=== PATIENT | female | born 1985 | race African-American/Black ===

== ENCOUNTER 2022-03-30 10:10 | Emergency (ER) | payer BC ==
[~2022-03-30] VITALS: Ht 177.8 cm; Wt 91.0 kg
[2022-03-30] MEDS ORDERED: KETOROLAC 60MG/2ML VIAL IM ONE (10:15)
[2022-03-30 11:20] VITALS: BP 148/86
[2022-03-30] MEDS ORDERED: METH-773 MT (12:06)
[2022-03-30] MEDS ORDERED: IBUP-2030 MT (12:06)
== END 2022-03-30 12:27 | disposition home or self-care (01) ==
LOC: ER 11:08
DX: M54.50 Low back pain, unspecified (principal); J45.909 Unspecified asthma, uncomplicated; Z88.0 Allergy status to penicillin; V49.9XXA Car occupant (driver) (passenger) injured in unspecified traffic accident, initial encounter; Y93.89 Activity, other specified; Y92.89 Other specified places as the place of occurrence of the external cause; Y99.8 Other external cause status
CPT/HCPCS: 72100; 72125; 96372; 99284; J1885

== ENCOUNTER 2023-08-16 23:06 | Emergency (ER) | payer BC, OTHER ==
[~2023-08-16] VITALS: Ht 170.2 cm; Wt 87.0 kg
[~2023-08-16 23:06] MED LIST: ACET-2708 MT; IBUP-2030 MT; METH-773 MT
[2023-08-16 23:16] VITALS: O2SAT 98
[2023-08-16 23:52] LABS: BASOPHILS % 0.9 % (0.0-2.0); DIFFERENTIAL COMMENT 0; EOSINOPHILS % 6.1 % (0.0-5.0); HEMATOCRIT. 34.9 % (36.0-48.0); HEMOGLOBIN. 11.2 g/dL (12.0-16.0); LYMPHOCYTES % 28.6 % (20.0-50.0); MEAN CORPUSCULAR HEMOGLOBIN 24.8 pg (28.0-32.0); MEAN CORPUSCULAR VOLUME 77.6 fL (81.0-99.0); MEAN PLATELET VOLUME 7.3 fl (7.4-10.4); MONOCYTES % 8.3 % (2.0-8.0); NEUTROPHILS % 56.1 % (40.0-76.0); PLATELET 484 x1000/uL (130-400); RED CELL DISTRIBUTION WIDTH 16.9 % (11.6-14.6); WHITE BLOOD COUNT 8.8 x1000/uL (4.5-11.0)
[2023-08-17 00:07] LABS: ALANINE AMINOTRANSFERASE 64 IU/L (10-49); ALBUMIN 4.6 g/dL (3.2-4.8); ASPARTATE AMINOTRANSFERASE 44 IU/L (<34); BILIRUBIN TOTAL 0.4 mg/dL (0.1-1.0); CALCIUM 9.6 mg/dL (8.7-10.4); CARBON DIOXIDE 24 mEq/L (21-32); CHLORIDE 104 mEq/L (98-107); CREATININE 0.8 mg/dL (0.6-1.0); GLUCOSE 101 mg/dL (70-105); POTASSIUM 3.6 mEq/L (3.5-5.1); PROTEIN TOTAL 7.7 g/dL (6.0-8.3); SODIUM 137 mEq/L (136-145); TROPONIN I HIGH SENSITIVITY 4 ng/L (3.0-34); UREA NITROGEN BLOOD 12 mg/dL (9-23)
[2023-08-17 00:13] LABS: HCG SCREEN NEGATIVE
[2023-08-17 07:08] VITALS: BP 114/66; PULSE 72; RESP 14
[2023-08-17 09:17] VITALS: TEMP 98.9
[2023-08-17] MEDS: ACETAMINOPHEN 325MG TABLET PO ONE (09:17)
== END 2023-08-17 11:00 | disposition home or self-care (01) ==
LOC: ER 23:06
DX: R07.89 Other chest pain (principal); J45.909 Unspecified asthma, uncomplicated; Z98.890 Other specified postprocedural states
CPT/HCPCS: 36415; 71045; 80053; 84484; 84703; 85025; 93005; 99285

== ENCOUNTER 2023-09-30 14:05 | Inpatient (IN) | payer BC, OTHER ==
[~2023-09-30] VITALS: Ht 170.2 cm; Wt 82.1 kg
[2023-09-30 15:21] LABS: DIFFERENTIAL COMMENT 0; EOSINOPHILS % 3.2 % (0.0-5.0); HEMATOCRIT. 29.6 % (36.0-48.0); HEMOGLOBIN. 9.7 g/dL (12.0-16.0); LYMPHOCYTES % 32.2 % (20.0-50.0); MEAN CORPUSCULAR HEMOGLOBIN 25.1 pg (28.0-32.0); MEAN CORPUSCULAR HGB CONC 32.8 g/dL (31.0-37.0); MEAN CORPUSCULAR VOLUME 76.4 fL (81.0-99.0); MEAN PLATELET VOLUME 6.9 fl (7.4-10.4); MONOCYTES % 8.4 % (2.0-8.0); NEUTROPHILS % 55.2 % (40.0-76.0); PLATELET 516 x1000/uL (130-400); RED BLOOD CELL COUNT 3.87 mill/uL (4.2-5.4); RED CELL DISTRIBUTION WIDTH 16.8 % (11.6-14.6); WHITE BLOOD COUNT 7.1 x1000/uL (4.5-11.0)
[2023-09-30 15:35] LABS: ALANINE AMINOTRANSFERASE 35 IU/L (10-49); ALBUMIN 4.6 g/dL (3.2-4.8); ASPARTATE AMINOTRANSFERASE 23 IU/L (<34); BILIRUBIN TOTAL 0.4 mg/dL (0.1-1.0); CALCIUM 8.8 mg/dL (8.7-10.4); CARBON DIOXIDE 26 mEq/L (21-32); CHLORIDE 105 mEq/L (98-107); CREATININE 0.7 mg/dL (0.6-1.0); GLUCOSE 102 mg/dL (70-105); POTASSIUM 2.9 mEq/L (3.5-5.1); PROTEIN TOTAL 7.5 g/dL (6.0-8.3); SODIUM 139 mEq/L (136-145); UREA NITROGEN BLOOD 6 mg/dL (9-23)
[2023-09-30 15:36] LABS: INR 1.1; PROTHROMBIN TIME 11.8 sec (9.6-11.0)
[2023-09-30 17:21] LABS: HCG SCREEN NEGATIVE
[2023-09-30] MEDS: VANCOMYCIN 1G PREMIX 200 ML IV SCH (20:00)
[2023-09-30] MEDS: CEFTRIAXONE 1GM/50ML 50 ML IV ONE (20:00)
[2023-09-30] MEDS: POTASSIUM CHLORIDE 20MEQ/PACKET PO NR (23:09)
[2023-10-01] MEDS ORDERED: IPRATROPIUM/ALBUTEROL 0.5-3(2.5)MG/3ML NEB HHN PRN (05:30)
[2023-10-01] MEDS ORDERED: GUAIFENESIN 200MG/10ML SUGAR FREE UDC PO PRN (05:30)
[2023-10-01] MEDS ORDERED: CLONIDINE 0.1MG TABLET PO PRN (05:30)
[2023-10-01] MEDS ORDERED: MAGNESIUM/ALUMINUM HYDROXIDE/SIMETHICONE 30ML UDC PO PRN (05:30)
[2023-10-01] MEDS ORDERED: DOCUSATE SODIUM 100MG CAPSULE PO PRN (05:30)
[2023-10-01] MEDS ORDERED: ACETAMINOPHEN 325MG TABLET PO PRN (05:30)
[2023-10-01] MEDS ORDERED: ONDANSETRON HCL 4MG/2ML INJ IV PRN (05:30)
[2023-10-01] MEDS: PANTOPRAZOLE SODIUM 40 MG/VIAL IV SCH (09:45)
[2023-10-01] MEDS: APIXABAN 5 MG TABLET PO SCH (09:53)
[2023-10-01] MEDS: VANCOMYCIN 750MG/150ML IV SCH (09:53)
[2023-10-01 11:21] VITALS: BP 128/60; PULSE 75; RESP 18; TEMP 97.8
[2023-10-01 12:00] VITALS: BP 126/65; PULSE 68; RESP 18; TEMP 97.3
[2023-10-01 13:10] LABS: BASOPHILS % 0.7 % (0.0-2.0); DIFFERENTIAL COMMENT 0; EOSINOPHILS % 3.5 % (0.0-5.0); HEMATOCRIT. 29.4 % (36.0-48.0); HEMOGLOBIN. 9.4 g/dL (12.0-16.0); LYMPHOCYTES % 25.3 % (20.0-50.0); MEAN CORPUSCULAR HEMOGLOBIN 24.9 pg (28.0-32.0); MEAN CORPUSCULAR HGB CONC 32.1 g/dL (31.0-37.0); MEAN CORPUSCULAR VOLUME 77.5 fL (81.0-99.0); MONOCYTES % 10.6 % (2.0-8.0); NEUTROPHILS % 59.9 % (40.0-76.0); PLATELET 490 x1000/uL (130-400); RED BLOOD CELL COUNT 3.79 mill/uL (4.2-5.4); RED CELL DISTRIBUTION WIDTH 17.4 % (11.6-14.6)
[2023-10-01] MEDS ORDERED: IOHEXOL-300 100 ML BOTTLE ONE (13:16)
[2023-10-01] MEDS ORDERED: CLINDAMYCIN 900 MG in DEXTROSE 5% WATER 50 ML IV SCH (13:30)
[2023-10-01 14:03] LABS: CALCIUM 8.8 mg/dL (8.7-10.4); CARBON DIOXIDE 28 mEq/L (21-32); CHLORIDE 108 mEq/L (98-107); CREATININE 0.7 mg/dL (0.6-1.0); GLUCOSE 88 mg/dL (70-105); IRON 21 ug/dL (50-170); PHOSPHORUS 2.3 mg/dL (2.5-4.9); POTASSIUM 3.3 mEq/L (3.5-5.1); SODIUM 143 mEq/L (136-145); TOTAL IRON BINDING CAPACITY 287 ug/dl (250-425); UREA NITROGEN BLOOD 6 mg/dL (9-23)
[2023-10-01 14:13] LABS: FERRITIN 10 ng/mL (10-291); FOLIC ACID (FOLATE) SERUM 12.91 ng/mL (>5.38); VITAMIN B12 SERUM 755 pg/mL (211-911)
[2023-10-01] MEDS: CLINDAMYCIN 900MG PREMIX 50 ML IV SCH (16:13)
[2023-10-01 20:00] VITALS: BP 103/54; PULSE 72; RESP 18; TEMP 98.1
[2023-10-02] VITALS: BP 110/59; PULSE 75; RESP 18; TEMP 97.7
[2023-10-02 04:00] VITALS: BP 112/63; PULSE 77; RESP 18; TEMP 97.9
[2023-10-02] MEDS: POTASSIUM CHLORIDE 20MEQ TABLET SR PO NR (07:30)
[2023-10-02 08:00] VITALS: BP 132/65; PULSE 79; RESP 20; TEMP 98.3
[2023-10-02 12:00] VITALS: BP 116/63; PULSE 73; RESP 20; TEMP 98.5
[2023-10-02 13:56] LABS: BASOPHILS % 1.2 % (0.0-2.0); DIFFERENTIAL COMMENT 0; EOSINOPHILS % 4.8 % (0.0-5.0); HEMATOCRIT. 27.2 % (36.0-48.0); HEMOGLOBIN. 8.9 g/dL (12.0-16.0); LYMPHOCYTES % 22.4 % (20.0-50.0); MEAN CORPUSCULAR HEMOGLOBIN 25.5 pg (28.0-32.0); MEAN CORPUSCULAR HGB CONC 32.9 g/dL (31.0-37.0); MEAN CORPUSCULAR VOLUME 77.5 fL (81.0-99.0); MEAN PLATELET VOLUME 7.2 fl (7.4-10.4); MONOCYTES % 8.8 % (2.0-8.0); NEUTROPHILS % 62.8 % (40.0-76.0); PLATELET 503 x1000/uL (130-400); RED CELL DISTRIBUTION WIDTH 16.7 % (11.6-14.6); WHITE BLOOD COUNT 7.2 x1000/uL (4.5-11.0)
[2023-10-02 14:26] LABS: ALANINE AMINOTRANSFERASE 43 IU/L (10-49); ALBUMIN 4.1 g/dL (3.2-4.8); ASPARTATE AMINOTRANSFERASE 43 IU/L (<34); BILIRUBIN TOTAL 0.4 mg/dL (0.1-1.0); CALCIUM 8.8 mg/dL (8.7-10.4); CARBON DIOXIDE 27 mEq/L (21-32); CHLORIDE 106 mEq/L (98-107); CHOLESTEROL 144 mg/dL (<200); CREATININE 0.7 mg/dL (0.6-1.0); GLUCOSE 87 mg/dL (70-105); HDL CHOLESTEROL 59 mg/dL (>65); LDL CHOLESTEROL 73 mg/dL (5-100); POTASSIUM 3.4 mEq/L (3.5-5.1); PROTEIN TOTAL 6.7 g/dL (6.0-8.3); SODIUM 140 mEq/L (136-145); T4 FREE 1.01 ng/dL (0.89-1.76); THYROID STIMULATING HORMONE 0.96 uIU/mL (0.55-4.78); TRIGLYCERIDE 118 mg/dL (0-150); UREA NITROGEN BLOOD 8 mg/dL (9-23)
[2023-10-02 16:00] VITALS: BP 125/61; PULSE 74; RESP 18; TEMP 99.5
[2023-10-02] MEDS: SODIUM PHOSPHATE 20 MMOL in DEXT 5% WATER 243.3333 ML IV NR (16:23)
[2023-10-02] MEDS ORDERED: MAGNESIUM 4 G PREMIX 100 ML IV NR (17:00)
[2023-10-02] MEDS: FERROUS SULFATE 325MG TABLET PO SCH (17:30)
[2023-10-02] MEDS: DOXYCYCLINE HYCLATE 100MG CAPSULE PO SCH (18:54)
[2023-10-02 20:00] VITALS: BP 107/52; PULSE 70; RESP 18; TEMP 97.5
[2023-10-02] MEDS: VANCOMYCIN 1GM/200ML PMX (BAXTER) IV SCH (22:22)
[2023-10-03] MEDS: MAGNESIUM 4 G PREMIX 100 ML IV NR (03:31)
[2023-10-03 04:00] VITALS: BP 92/35; PULSE 66; RESP 18; TEMP 96.9
[2023-10-03 07:10] LABS: CALCIUM 8.8 mg/dL (8.7-10.4); CARBON DIOXIDE 28 mEq/L (21-32); CHLORIDE 106 mEq/L (98-107); CREATININE 0.7 mg/dL (0.6-1.0); GLUCOSE 92 mg/dL (70-105); POTASSIUM 3.1 mEq/L (3.5-5.1); SODIUM 141 mEq/L (136-145); UREA NITROGEN BLOOD 9 mg/dL (9-23)
[2023-10-03 07:13] LABS: BASOPHILS % 0.6 % (0.0-2.0); DIFFERENTIAL COMMENT 0; EOSINOPHILS % 6.1 % (0.0-5.0); HEMATOCRIT. 26.8 % (36.0-48.0); HEMOGLOBIN. 8.9 g/dL (12.0-16.0); LYMPHOCYTES % 33.1 % (20.0-50.0); MEAN CORPUSCULAR HEMOGLOBIN 25.5 pg (28.0-32.0); MEAN CORPUSCULAR HGB CONC 33.1 g/dL (31.0-37.0); MEAN PLATELET VOLUME 7.1 fl (7.4-10.4); MONOCYTES % 11.5 % (2.0-8.0); NEUTROPHILS % 48.7 % (40.0-76.0); PLATELET 515 x1000/uL (130-400); RED BLOOD CELL COUNT 3.48 mill/uL (4.2-5.4); RED CELL DISTRIBUTION WIDTH 16.4 % (11.6-14.6); WHITE BLOOD COUNT 5.1 x1000/uL (4.5-11.0)
[2023-10-03 08:00] VITALS: BP 109/52; PULSE 72; RESP 18; TEMP 97.5
[2023-10-03] MEDS: POTASSIUM CHLORIDE 20MEQ TABLET SR PO NR (10:17)
[2023-10-03 12:00] VITALS: BP 103/52; PULSE 81; RESP 18; TEMP 97.4
[2023-10-03 13:01] VITALS: BP 103/52; PULSE 81; TEMP 97.4; O2SAT 100
[2023-10-03 16:00] VITALS: BP 146/74; PULSE 87; RESP 18; TEMP 96.7
[2023-10-03] MEDS ORDERED: LEVOFLOXACIN 250MG TABLET PO SCH (16:30)
[2023-10-03] MEDS ORDERED: CEFEPIME 2GM IN DEXT 5% 100ML IV SCH (16:30)
[2023-10-03] MEDS ORDERED: CEFEPIME 2GM/100ML 100 ML IV SCH (18:00)
[2023-10-03 20:00] VITALS: BP 130/57; PULSE 72; RESP 18; TEMP 98
[2023-10-03] MEDS: ACETAMINOPHEN 325MG TABLET PO PRN (20:11)
[2023-10-04] VITALS: BP 112/44; PULSE 69; RESP 18; TEMP 97.4
[2023-10-04 04:00] VITALS: BP 119/51; PULSE 68; RESP 18; TEMP 97.9
[2023-10-04 08:00] VITALS: BP 117/146; PULSE 65; RESP 20; TEMP 98.3
[2023-10-04 09:43] LABS: CALCIUM 8.7 mg/dL (8.7-10.4); CARBON DIOXIDE 27 mEq/L (21-32); CHLORIDE 105 mEq/L (98-107); CREATININE 0.7 mg/dL (0.6-1.0); GLUCOSE 97 mg/dL (70-105); POTASSIUM 3.7 mEq/L (3.5-5.1); SODIUM 139 mEq/L (136-145); UREA NITROGEN BLOOD 9 mg/dL (9-23)
[2023-10-04] MEDS ORDERED: KETOROLAC 15MG/ML VIAL IV PRN (10:15)
[2023-10-04 10:27] LABS: BASOPHILS % 0.8 % (0.0-2.0); DIFFERENTIAL COMMENT 0; EOSINOPHILS % 3.7 % (0.0-5.0); HEMATOCRIT. 29.3 % (36.0-48.0); HEMOGLOBIN. 9.7 g/dL (12.0-16.0); LYMPHOCYTES % 32.1 % (20.0-50.0); MEAN CORPUSCULAR HEMOGLOBIN 25.4 pg (28.0-32.0); MEAN CORPUSCULAR HGB CONC 33.1 g/dL (31.0-37.0); MEAN CORPUSCULAR VOLUME 76.7 fL (81.0-99.0); MEAN PLATELET VOLUME 7.1 fl (7.4-10.4); MONOCYTES % 9.3 % (2.0-8.0); NEUTROPHILS % 54.1 % (40.0-76.0); PLATELET 562 x1000/uL (130-400); RED BLOOD CELL COUNT 3.82 mill/uL (4.2-5.4); RED CELL DISTRIBUTION WIDTH 16.7 % (11.6-14.6); WHITE BLOOD COUNT 6.3 x1000/uL (4.5-11.0)
[2023-10-04 12:00] VITALS: BP 130/69; PULSE 84; RESP 20; TEMP 98.6
[2023-10-04 15:54] LABS: TROPONIN I HIGH SENSITIVITY < 4 ng/L (3.0-34)
[2023-10-04 16:00] VITALS: BP 125/68; PULSE 77; RESP 20; TEMP 98.7
[2023-10-04 17:02] VITALS: BP 125/68; PULSE 77; TEMP 98.7; O2SAT 97
[2023-10-04] MEDS ORDERED: DOXY100C5 MT (17:11)
[2023-10-04] MEDS ORDERED: LEVO750T68 MT (17:17)
[2023-10-04] MEDS ORDERED: METR-167 MT (17:17)
[2023-10-04] MEDS ORDERED: FAMOTIDINE 20MG TABLET PO SCH (21:00)
== END 2023-10-04 19:46 | disposition home or self-care (01) | DRG 383 ==
LOC: ER 14:45 → 4WST 22:49 → 6WST 10-03 19:19
PROVIDERS: ADMIT Preventive Medicine Clinical Informatics; ATTEND Preventive Medicine Clinical Informatics
DX: L03.317 Cellulitis of buttock (principal); D57.1 Sickle-cell disease without crisis; D50.9 Iron deficiency anemia, unspecified; E87.6 Hypokalemia; J45.909 Unspecified asthma, uncomplicated; L73.2 Hidradenitis suppurativa; K59.00 Constipation, unspecified; D75.839 Thrombocytosis, unspecified; N92.0 Excessive and frequent menstruation with regular cycle; Z79.01 Long term (current) use of anticoagulants; Z88.0 Allergy status to penicillin; Z98.891 History of uterine scar from previous surgery; Z82.49 Family history of ischemic heart disease and other diseases of the circulatory system
CPT/HCPCS: 36415; 73610; 74177; 80048; 80053; 80061; 80202; 82607; 82728; 82746; 83540; 83550; 83735; 84100; 84145; 84439; 84443; 84484; 84703; 85025; 93306; 93970; 99285; C1893; C9113; J0692; J0696; J1885; J3370; J3475; J3490; J7060; Q9967

== ENCOUNTER 2023-10-04 20:40 | Emergency (ER) | payer OTHER ==
[~2023-10-04] VITALS: Ht 175.3 cm; Wt 88.0 kg
[~2023-10-04 20:40] MED LIST changes: +DOXY100C5 MT; +LEVO750T68 MT; +METR-167 MT
[2023-10-04 20:55] VITALS: BP 128/90; TEMP 98.6; O2SAT 99
[2023-10-04 22:50] VITALS: PULSE 89; RESP 18
== END 2023-10-05 01:31 | disposition home or self-care (01) ==
LOC: ER 20:40
DX: M54.2 Cervicalgia (principal); M54.9 Dorsalgia, unspecified; M79.605 Pain in left leg; M79.604 Pain in right leg; J45.909 Unspecified asthma, uncomplicated; Z88.0 Allergy status to penicillin; Z91.040 Latex allergy status; Z98.890 Other specified postprocedural states
CPT/HCPCS: 99283

== ENCOUNTER 2023-12-27 16:44 | Emergency (ER) | payer OTHER ==
[~2023-12-27] VITALS: Ht 167.6 cm; Wt 87.0 kg
[~2023-12-27 16:44] MED LIST changes: -METH-773 MT
[2023-12-27 17:06] VITALS: O2SAT 99
[2023-12-27 17:34] LABS: BASOPHILS % 0.8 % (0.0-2.0); DIFFERENTIAL COMMENT 0; EOSINOPHILS % 2.9 % (0.0-5.0); HEMATOCRIT. 31.2 % (36.0-48.0); HEMOGLOBIN. 10.5 g/dL (12.0-16.0); LYMPHOCYTES % 27.9 % (20.0-50.0); MEAN CORPUSCULAR HEMOGLOBIN 26.1 pg (28.0-32.0); MEAN CORPUSCULAR HGB CONC 33.6 g/dL (31.0-37.0); MEAN CORPUSCULAR VOLUME 77.7 fL (81.0-99.0); MEAN PLATELET VOLUME 6.5 fl (7.4-10.4); MONOCYTES % 8.8 % (2.0-8.0); NEUTROPHILS % 59.6 % (40.0-76.0); PLATELET 511 x1000/uL (130-400); RED BLOOD CELL COUNT 4.02 mill/uL (4.2-5.4); RED CELL DISTRIBUTION WIDTH 18.1 % (11.6-14.6); WHITE BLOOD COUNT 10.8 x1000/uL (4.5-11.0)
[2023-12-27 17:41] LABS: CHLORIDE 108 mEq/L (98-107); POTASSIUM 3.6 mEq/L (3.5-5.1); SODIUM 141 mEq/L (136-145)
[2023-12-27 17:42] LABS: CARBON DIOXIDE 25 mEq/L (21-32)
[2023-12-27 17:43] LABS: CALCIUM 9.4 mg/dL (8.7-10.4)
[2023-12-27] MEDS ORDERED: ACETAMINOPHEN 325MG TABLET PO ONE (17:45)
[2023-12-27 17:47] LABS: CREATININE 0.6 mg/dL (0.6-1.0); GLUCOSE 97 mg/dL (70-105)
[2023-12-27 17:48] LABS: UREA NITROGEN BLOOD 8 mg/dL (9-23)
[2023-12-27 17:49] LABS: ALANINE AMINOTRANSFERASE 66 IU/L (10-49); ALBUMIN 4.4 g/dL (3.2-4.8); ASPARTATE AMINOTRANSFERASE 50 IU/L (<34)
[2023-12-27 17:50] LABS: BILIRUBIN TOTAL 0.3 mg/dL (0.1-1.0); PROTEIN TOTAL 7.1 g/dL (6.0-8.3)
[2023-12-27] MEDS: ONDANSETRON 4MG ODT PO ONE (17:55)
[2023-12-27 18:00] LABS: BILIRUBIN DIRECT < 0.1 mg/dL (<=3.0)
[2023-12-27] MEDS ORDERED: ACETAMINOPHEN 325MG TABLET PO NR (18:00)
[2023-12-27] MEDS ORDERED: MECL-115 PO (18:47)
[2023-12-27] MEDS ORDERED: ONDA4TAB11 PO (18:47)
[2023-12-27 19:03] VITALS: BP 123/84; PULSE 100; RESP 18; TEMP 98.5
== END 2023-12-27 19:03 | disposition home or self-care (01) ==
LOC: ER 16:44
DX: R10.9 Unspecified abdominal pain (principal); R11.0 Nausea; R42 Dizziness and giddiness; J45.909 Unspecified asthma, uncomplicated; Z98.890 Other specified postprocedural states
CPT/HCPCS: 99284; 76830; 76856; 80076; 80048; 84702; 83690; 85025; 36415; Q0162